=== PATIENT | male | born 2000 | race Caucasian/White ===

== ENCOUNTER 2021-08-01 12:37 | Observation (INO) ==
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
[2021-08-01 13:34] LABS: Basophils # (auto) 0.02 K/uL (0-0.2); Basophils % (auto) 0.3 %; Eosinophils # (auto) 0.07 K/uL (0-0.5); Eosinophils % (auto) 0.9 %; Hemoglobin 11.4 g/dL (14.0-18.0); Immature Granulocytes # (auto) 0.01 K/uL (0.00-0.02); Immature Granulocytes % (auto) 0.1 %; Lymphocytes # (auto) 1.19 K/uL (1.2-3.4); Lymphocytes % (auto) 15.4 %; Mean Corpuscular Hemoglobin 29.8 pg (25-34); Mean Corpuscular Hgb Conc 32.6 g/dL (32-36); Mean Corpuscular Volume 91.4 fL (80-100); Mean Platelet Volume 9.7 fL (7.4-10.4); Monocytes # (auto) 0.63 K/uL (0.11-0.59); Monocytes % (auto) 8.2 %; Neutrophils # (auto) 5.81 K/uL (1.4-6.5); Neutrophils % (auto) 75.1 %; Platelet Count 212 K/uL (130-400); RDW Coefficient of Variation 13.4 % (11.5-14.5); RDW Standard Deviation 44.4 fL (36.4-46.3); Red Blood Count 3.83 M/uL (4.7-6.1); White Blood Count 7.73 K/uL (4.8-10.8)
--- NOTE | 2021-08-01 13:50 | XRay Report ---
XR forearm LT 2V, XR elbow LT min 3V routine CLINICAL HISTORY: L forearm/ elbow abrasion w/ infection. COMPARISON STUDY: No previous studies for comparison. TECHNIQUE: AP and lateral left forearm and 4 left elbow views FINDINGS: Bones: There is no evidence for an acute fracture or dislocation. There is no lytic or blastic lesion . Joints: The joint spaces are maintained. There is no evidence for an intra-articular effusion or elev ation of the fat pads. The bones are in anatomic alignment. Soft tissues: There is mild soft tissue swelling along the dorsum of the forearm. There is no air see n within the soft tissues. There is no radiopaque foreign body. IMPRESSION: 1. No acute osseous pathology. 2. Mild dorsal soft tissue swelling ACT 112: Negative or not required by law. Electronically signed by: Brian Hu M.D. 08/01/2021 1:48 PM
[2021-08-01 14:14] LABS: Albumin Globulin Ratio 2.2 (0.9-2); Albumin Level 4.2 gm/dl (3.4-5.0); BUN Creatinine Ratio 21.5 (10-20); Bilirubin,Total 0.6 mg/dl (0.2-1.0); Creatinine Clr Calc Pharmacy 115.6 ml/min; Est GFR (African American) 149.8 ml/min; Est GFR (Non-African American) 129.3 ml/min; Globulin 1.9 gm/dl (2.5-4.0); Potassium 3.6 mmol/L (3.5-5.1); Total Protein 6.1 gm/dl (6.0-8.3)
[2021-08-01] MEDS ORDERED: metroNIDAZOLE 500 MG TAB PO STA (14:51)
[2021-08-01] MEDS ORDERED: VANCOMYCIN CONSULT ACTIVE PRN ×3 (14:51→17:37)
[2021-08-01] MEDS ORDERED: VANCOMYCIN HCL 1,000 MG in SODIUM CHLORIDE 0.9% 500 ML IV ONE (14:51)
[2021-08-01] MEDS ORDERED: cefTRIAXone SODIUM 2,000 MG/70 ML BAG IV STA (14:51)
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
[2021-08-01] MEDS ORDERED: POLYETHYLENE (MIRALAX) 17 GM PACK PO PRN (17:37)
[2021-08-01] MEDS ORDERED: ALBUTEROL HFA 8 GM INHALER INH PRN (17:37)
[2021-08-01] MEDS ORDERED: ONDANSETRON INJ 2 MG/ML 2 ML VIAL IV PRN (17:37)
[2021-08-01] MEDS ORDERED: ACETAMINOPHEN 325 MG TAB PO PRN (17:37)
--- NOTE | 2021-08-01 20:13 | Pharmacy Report ---
Pharmacy PK ABX Note - Date of Service August 01, 2021 - Assessment and Plan Assessment 21 year old M receiving Vancomycin + Ceftriaxone + Metronidazole for treatment of left forearm cellulitis. * No significant past medical history. * Afebrile and without leukocytosis. Plan Vancomycin * Loading dose: 1000 mg IV x 1 * Maintenance dose: 750 mg IV every 8 hours * Regimen is predicted to achieve target AUC/ELLIOT of 400-600 mg/L.hr * Trough level ordered for: 08/03/21 Ceftriaxone * 2000 mg IV every 24 hours Metronidazole * 500 mg PO every 8 hours Pharmacy will continue to follow and will adjust dose/frequency as necessary. Thank you. Pharmacy has transitioned to AUC monitoring for vancomycin. AUC/ELLIOT is the preferred PK/PD target and is associated with decreased risk of nephrotoxicity compared to traditional trough targets.
[2021-08-01] MEDS: metroNIDAZOLE 500 MG TAB PO SCH (22:46)
[2021-08-01] MEDS: VANCOMYCIN HCL 750 MG in SODIUM CHLORIDE 0.9% 250 ML IV SCH (22:46)
[2021-08-02] MEDS: metroNIDAZOLE 500 MG TAB PO SCH ×2 (05:33→14:02)
[2021-08-02] MEDS: VANCOMYCIN HCL 750 MG in SODIUM CHLORIDE 0.9% 250 ML IV SCH (05:33)
[2021-08-02 07:59] LABS: Hematocrit (blood only) 36.9 % (42-52); Mean Corpuscular Hemoglobin 29.9 pg (25-34); Mean Corpuscular Hgb Conc 32.5 g/dL (32-36); Mean Platelet Volume 10.3 fL (7.4-10.4); Platelet Count 223 K/uL (130-400); RDW Coefficient of Variation 13.4 % (11.5-14.5); RDW Standard Deviation 45.2 fL (36.4-46.3); Red Blood Count 4.01 M/uL (4.7-6.1); White Blood Count 6.39 K/uL (4.8-10.8)
[2021-08-02 08:35] LABS: BUN Creatinine Ratio 14.8 (10-20); Creatinine Clr Calc Pharmacy 112.1 ml/min; Est GFR (African American) 148.3 ml/min; Est GFR (Non-African American) 127.9 ml/min; Potassium 4.2 mmol/L (3.5-5.1)
[2021-08-02] MEDS ORDERED: CETIRIZINE HCL 10 MG TABLET PO SCH (09:00)
--- NOTE | 2021-08-02 10:45 | Electrocardiogram Report ---
Test Reason : Blood Pressure : / mmHG Vent. Rate : 043 BPM Atrial Rate : 043 BPM P-R Int : 140 ms QRS Dur : 102 ms QT Int : 438 ms P-R-T Axes : 066 069 035 degrees QTc Int : 370 ms Marked sinus bradycardia with sinus arrhythmia RSR' or QR pattern in V1 suggests right ventricular conduction delay Otherwise normal ECG for this age No previous ECGs available Confirmed by Richardson Luu ([id number]) on 08/02/2021 10:44:31 AM Referred By: Christianne Ordoñez Confirmed By:Richardson Luu
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
[2021-08-02] MEDS ORDERED: cefTRIAXone SODIUM 2,000 MG in DEXTROSE 5% 50 ML IV SCH (15:00)
[2021-08-03] MEDS ORDERED: VANCOMYCIN TROUGH ONE (05:30)
== END 2021-08-02 14:43 | disposition home or self-care (01) ==
LOC: ED 12:37 → EDINP 12:37 → SUATTDRO 15:31 → 3W 20:54